=== PATIENT | female | born 1985 | race Hispanic/Latino ===

== ENCOUNTER → 2016-11-19 | Outpatient (CLI) | payer OTHER ==
[~2016-11-19] MED LIST: HYDR-3583 PO; IBP600T1 PO; PREN-37 PO
--- NOTE | 2016-11-19 13:58 | Diagnostic Imaging Report ---
INDICATION: survey. COMPARISON: 10/19/2016. DISCUSSION: Transabdominal sonographic evaluation of the gravid uterus was performed. Single live intrauterine at 20 weeks 4 days the sonographic measurements. Appropriate interval growth. EDC by today's ultrasound is 04/04/2017. presentation is cephalic. Normal amniotic fluid index. Grade 1 placenta is located anteriorly with no placenta previa. heart rate measures 134 beats per minute. The cervix measures 6.2 cm in length. Biparietal diameter measures 4.9 cm. Head circumference measures 17.8 cm. Abdominal circumference measures 15.2 cm. Femur length measures 3.4 cm. Good visualization of the kidneys, bladder, stomach, brain, four-chamber heart, three-vessel cord and insertion, and spine. Normal motion present. No abnormal adnexal mass or fluid. Estimated weight is 358 g. IMPRESSION: 1. Single live intrauterine at 20 weeks 4 days by sonographic measurements. 2. Normal anatomical survey. Dictated by: Dictated on workstation # [id number]
== END ==
LOC: RAD 11:35
PROVIDERS: ATTEND Family Medicine
DX: Z34.82 Encounter for supervision of other normal pregnancy, second trimester (principal); Z3A.20 20 weeks gestation of pregnancy
CPT/HCPCS: 76805

== ENCOUNTER → 2017-02-11 | Outpatient (CLI) | payer OTHER ==
--- NOTE | 2017-02-11 19:15 | Diagnostic Imaging Report ---
OB ultrasound. INDICATION: Evaluate growth. FINDINGS: heart rate is 140 beats per minute. The placenta is anterior with no placenta previa. position is cephalic. LINUS is 11.6 cm. The growth parameters are biparietal diameter at 32 weeks and 6 days, head circumference at 34 weeks and 2 days, abdominal circumference at 32 weeks and 4 days, and femur length at 33 weeks and 2 days. These are all averaged at 33 weeks and 6 days. This is compared to gestational age of 33 weeks and 1 day based on first ultrasound obtained on 10/19/2016. IMPRESSION: Appropriate interval growth. Dictated by: Dictated on workstation # [id number]
== END ==
LOC: RAD 15:31
PROVIDERS: ATTEND Family Medicine
DX: O36.63X0 Maternal care for excessive fetal growth, third trimester, not applicable or unspecified (principal)
CPT/HCPCS: 76816

== ENCOUNTER → 2017-03-21 | Outpatient (CLI) | payer OTHER ==
--- NOTE | 2017-03-21 11:19 | Diagnostic Imaging Report ---
OB ultrasound. INDICATION: Third trimester bleeding. FINDINGS: The heart rate is 134 beats per minutes. The placenta is anterior. There is no placenta previa. There is no retroplacental hemorrhage. The amniotic fluid index is 19 cm. The cervix is obscured by the head in the lower uterine segment as the fetus is in cephalic position. IMPRESSION: No evidence of retroplacental hemorrhage. Dictated by: Dictated on workstation # [id number]
== END ==
LOC: RAD 10:34
PROVIDERS: ATTEND Family Medicine
DX: O46.93 Antepartum hemorrhage, unspecified, third trimester (principal); Z3A.00 Weeks of gestation of pregnancy not specified
CPT/HCPCS: 76815

== ENCOUNTER 2017-03-27 20:02 | Inpatient (IN) | payer OTHER ==
[2017-03-27] VITALS (10 sets, daily range): BP systolic 113–134; BP diastolic 62–74
[~2017-03-27] VITALS: Ht 157.5 cm; Wt 73.1 kg
[2017-03-27] MEDS ORDERED: D5 LR IV SOLUTION 1,000 ML IV SCH (20:23)
[2017-03-27] MEDS ORDERED: MINERAL OIL CONCENTRATE 99.9% 15 ML UDC TOP PRN (20:30)
[2017-03-27 20:37] LABS: BASOPHILS % (AUTO) 0 % (0-10); EOSINOPHILS % (AUTO) 0 % (0-10); LYMPHOCYTES # (AUTO) 1.7 X 10^3 (1.0-4.0); LYMPHOCYTES % (AUTO) 15 % (12-44); MEAN CORPUSCULAR HEMOGLOBIN 33 PG (25-34); MEAN CORPUSCULAR HGB CONC 33 G/DL (32-36); MEAN CORPUSCULAR VOLUME 99 FL (80-99); MEAN PLATELET VOLUME 11.3 FL (7.4-10.4); MONOCYTES # (AUTO) 0.9 X 10^3 (0.0-1.0); MONOCYTES % (AUTO) 8 % (0-12); NEUTROPHILS # (AUTO) 8.6 X 10^3 (1.8-7.8); NEUTROPHILS % (AUTO) 77 % (42-75); PLATELET COUNT 140 10^3/uL (130-400); RED BLOOD COUNT 4.06 10^6/uL (4.35-5.85); RED CELL DISTRIBUTION WIDTH 14.4 % (10.0-14.5); WHITE BLOOD COUNT 11.3 10^3/uL (4.3-11.0)
[2017-03-27] MEDS ORDERED: OXYTOCIN/NORMAL SALINE 500 ML IV ONE (20:45)
[2017-03-27] MEDS ORDERED: LIDOCAINE/EPI 1%-1:200,000 (XYLOCAINE) 30 ML VIAL ONE (21:10)
--- NOTE | 2017-03-27 21:41 | OB Labor & Delivery Record ---
Vag Delivery Note Vag Delivery Note Date of Delivery: 03/27/17 Preoperative Diagnosis: David Garcia is a 32 /Para 3 / 2 ,Gestational Age 38w1d Postoperative Diagnosis: Same Surgeon: VIBHA GUTIERREZ Anesthesia: None Delivery Type: Spontaneous vaginal Findings: Viable male infant, apgars 8/9, weight 8 lb 3oz Lacerations: bilateral periurethral, right vaginal sulcus abrasion Intact placenta with 3 vessel cord. No nuchal cord, body cord or shoulder dystocia Estimated Blood Loss: 250 ml Complications: None Condition: Stable Description of Procedure: The patient is a 32 yo G3 now P3 with uncomplicated who presented just after SROM at home. She was admitted and informed consent was obtained. Her labor course was remarkable for rapid progression and meconium stained fluid. She progressed to complete dilatation and began to push. She was then set up for delivery. The 's head was delivered atraumatically in the J LUIS position. The shoulders and remainder of the infant's body were then delivered without difficulty. Upon delivery, the infant was vigorous and placed on maternal abdomen. Delayed cord clamping employed. An intact placenta with 3-vessel cord delivered via Ernie and there was found to be minimal bleeding.~ Vigorous fundal massage was performed and the fundus was found to be firm. IV oxytocin was given. Examination of the vagina and perineum revealed a left perineal laceration repaired in simple running fashion with 3-0 rapide. Right periurethral abrasion and vaginal sulcus abrasion were hemostatic and well opposed without repair. Following the repair, sponge, instrument and needle counts were correct. Mom and baby were both in stable condition in the labor suite. Vitals - Labs Labs Laboratory Tests 03/27/17 20:25: White Blood Count 11.3H, Red Blood Count 4.06L, Hemoglobin 13.4, Hematocrit 40, Mean Corpuscular Volume 99, Mean Corpuscular Hemoglobin 33, Mean Corpuscular Hemoglobin Concent 33, Red Cell Distribution Width 14.4, Platelet Count 140, Mean Platelet Volume 11.3H, Neutrophils (%) (Auto) 77H, Lymphocytes (%) (Auto) 15, Monocytes (%) (Auto) 8, Eosinophils (%) (Auto) 0, Basophils (%) (Auto) 0, Neutrophils # (Auto) 8.6H, Lymphocytes # (Auto) 1.7, Monocytes # (Auto) 0.9, Eosinophils # (Auto) 0.0, Basophils # (Auto) 0.0 VIBHA GUTIERREZ MD March 27, 2017 9:40 pm
--- NOTE | 2017-03-27 21:43 | History & Physical-OB ---
OB - Chief Complaint & HPI Date Date of Admission: Date of Admission: March 27, 2017 at 9:15 pm Chief Complaint/History OB-Reason for Admission/Chief: Onset of Labor Hx : 3 Hx Para: 2 Expected Date of Delivery: Apr 09, 2017 Gestational Age in Weeks: 38 Gestational Age in Days: 1 Other reason for admission: at 38 weeks presented with contraction since 6 am, with gush of fluid at about 6:30 pm. Allergies and Home Medications Allergies Coded Allergies: No Known Drug Allergies (Unverified , 07/23/13) Home Medications Vit/Iron Fumarate/FA 1 Each Tablet, 1 EACH PO DAILY, (Reported) OB - History Hx of Present Care: Yes Ultrasounds: Normal mid trimester US Obstetrical Complications: None Medical Complications: None Obstetrical History Hx : 3 Hx Para: 2 Hx # Term Pregnancies: 2 Hx # Pregnancies: 0 Number of Living Children: 2 Hx Termination: No Hx Multiple Gestation: No Hx Ectopic : No Hx Stillbirth: No Hx Complication: No Hx Induced Hypertens: No Hx Maternal Gestational Diabet: No Hx Hemorrhage: No Delivery History Hx Dystocia: No Hx Forceps Assisted Delivery: No Hx Vacuum Extraction Assisted: No Hx Placenta Abnormality: No Hx Distress: No Hx Large For Gestational Age I: No Hx Small for Gestational Age I: No Hx Section: No Hx Vaginal Delivery Post C-Sec: No Hx Blood Disorders: No Adverse Rxn to Tranfusion: No Patient Past Medical History None Social History/Family History HIV/AIDS: No Sexually Transmitted Disease: No Alcohol Use: Denies Use Recreational Drug Use: No Smoking Cessation: Never smoker Immunizations Tetanus Booster (TDap): Less than 5yrs Rubella: immune RPR/VDRL: Negative GBS Status: Negative HBsAG: Negative OB - Admission Exam Physical Exam HEENT: NCAT Cervical Dilatation: 10cm Effacement: 100% Station: +3 Membranes: Ruptured Amniotic Fluid: Thin Meconium Heart Rate: 140's Accelerations: Accelerations Present Decelerations: Variable Decelerations Crabber Variability: Average (6-25) Contractions on Admission: < 5 Minutes Apart Intensity: Firm Labs Laboratory Tests Test 03/27/17 20:25 Range/Units White Blood Count 11.3 H 4.3-11.0 10^3/uL Red Blood Count 4.06 L 4.35-5.85 10^6/uL Hemoglobin 13.4 11.5-16.0 G/DL Hematocrit 40 35-52 % Mean Corpuscular Volume 99 80-99 FL Mean Corpuscular Hemoglobin 33 25-34 PG Mean Corpuscular Hemoglobin Concent 33 32-36 G/DL Red Cell Distribution Width 14.4 10.0-14.5 % Platelet Count 140 130-400 10^3/uL Mean Platelet Volume 11.3 H 7.4-10.4 FL Neutrophils (%) (Auto) 77 H 42-75 % Lymphocytes (%) (Auto) 15 12-44 % Monocytes (%) (Auto) 8 0-12 % Eosinophils (%) (Auto) 0 0-10 % Basophils (%) (Auto) 0 0-10 % Neutrophils # (Auto) 8.6 H 1.8-7.8 X 10^3 Lymphocytes # (Auto) 1.7 1.0-4.0 X 10^3 Monocytes # (Auto) 0.9 0.0-1.0 X 10^3 Eosinophils # (Auto) 0.0 0.0-0.3 10^3/uL Basophils # (Auto) 0.0 0.0-0.1 10^3/uL OB - Assessment/Plan/Diagnosis Assessment Assessment: active labor, rupture of membranes Plan Plan: Expectant Management VIBHA GUTIERREZ MD March 27, 2017 9:43 pm
[2017-03-27] MEDS ORDERED: CATHETER FLUSH 10 ML SYR IV SCH (22:00)
[2017-03-28] VITALS: BP 115/68
[2017-03-28] MEDS ORDERED: OXYTOCIN/NORMAL SALINE 500 ML IV SCH (00:41)
[2017-03-28] MEDS ORDERED: WITCH HAZEL(TUCKS) 40 EA JAR TOP PRN (00:45)
[2017-03-28] MEDS ORDERED: BENZOCAINE/MENTHOL (DERMOPLAST) 56 ML CAN TP PRN (00:45)
[2017-03-28] MEDS: IBUPROFEN 600 MG (MOTRIN) TAB PO SCH ×4 (00:58→18:20)
[2017-03-28 00:59] VITALS: BP 113/66
[2017-03-28 04:45] VITALS: BP 103/60
[2017-03-28 06:06] LABS: BASOPHILS % (AUTO) 0 % (0-10); EOSINOPHILS % (AUTO) 0 % (0-10); LYMPHOCYTES # (AUTO) 1.8 X 10^3 (1.0-4.0); LYMPHOCYTES % (AUTO) 16 % (12-44); MEAN CORPUSCULAR HEMOGLOBIN 33 PG (25-34); MEAN CORPUSCULAR HGB CONC 33 G/DL (32-36); MEAN CORPUSCULAR VOLUME 100 FL (80-99); MEAN PLATELET VOLUME 10.9 FL (7.4-10.4); MONOCYTES # (AUTO) 0.8 X 10^3 (0.0-1.0); MONOCYTES % (AUTO) 7 % (0-12); NEUTROPHILS # (AUTO) 8.6 X 10^3 (1.8-7.8); NEUTROPHILS % (AUTO) 77 % (42-75); PLATELET COUNT 129 10^3/uL (130-400); RED BLOOD COUNT 3.47 10^6/uL (4.35-5.85); RED CELL DISTRIBUTION WIDTH 14.4 % (10.0-14.5); WHITE BLOOD COUNT 11.2 10^3/uL (4.3-11.0)
[2017-03-28 09:45] VITALS: BP 102/64
[2017-03-28] MEDS: PRENATAL VITAMIN 1 EA TAB PO SCH (10:43)
--- NOTE | 2017-03-28 11:17 | Progress Note (SOAP) ---
Subjective Subjective/Events-last exam Afebrile, no acute events. Denies dizziness or shortness of breath. States bleeding and pain are minimal. Is bottle-feeding. Date seen by provider: March 28, 2017 Time seen by provider: 09:20 Objective Exam Last Set of Vital Signs Vital Signs Date Time Temp Pulse Resp B/P (MAP) Pulse Ox O2 Delivery O2 Flow Rate FiO2 03/28/17 04:45 97.0 83 18 103/60 03/28/17 00:00 98 Capillary Refill : I&O Bad tableGeneral: Alert, No Acute Distress Lungs: Clear to Auscultation, Normal Air Movement Heart: Regular Rate, No Murmurs Abdomen: Other (fundus firm at umbilicus) Extremities: No Edema Neuro: Normal Speech Psych/Mental Status: Mental Status NL Results/Procedures Lab Laboratory Tests 03/27/17 20:25: White Blood Count 11.3H, Red Blood Count 4.06L, Hemoglobin 13.4, Hematocrit 40, Mean Corpuscular Volume 99, Mean Corpuscular Hemoglobin 33, Mean Corpuscular Hemoglobin Concent 33, Red Cell Distribution Width 14.4, Platelet Count 140, Mean Platelet Volume 11.3H, Neutrophils (%) (Auto) 77H, Lymphocytes (%) (Auto) 15, Monocytes (%) (Auto) 8, Eosinophils (%) (Auto) 0, Basophils (%) (Auto) 0, Neutrophils # (Auto) 8.6H, Lymphocytes # (Auto) 1.7, Monocytes # (Auto) 0.9, Eosinophils # (Auto) 0.0, Basophils # (Auto) 0.0 03/28/17 05:52: White Blood Count 11.2H, Red Blood Count 3.47L, Hemoglobin 11.4L, Hematocrit 35 , Mean Corpuscular Volume 100H, Mean Corpuscular Hemoglobin 33, Mean Corpuscular Hemoglobin Concent 33, Red Cell Distribution Width 14.4, Platelet Count 129L, Mean Platelet Volume 10.9H, Neutrophils (%) (Auto) 77H, Lymphocytes (%) (Auto) 16, Monocytes (%) (Auto) 7, Eosinophils (%) (Auto) 0, Basophils (%) ( Auto) 0, Neutrophils # (Auto) 8.6H, Lymphocytes # (Auto) 1.8, Monocytes # (Auto ) 0.8, Eosinophils # (Auto) 0.0, Basophils # (Auto) 0.0 Assessment/Plan Assessment/Plan Admission Dx Active labor at 38 weeks gestation O+ blood type RI GBS neg Plan s/p uncomplicated spontaneous vaginal delivery- continue routine care Asymptomatic anemia Diagnosis/Problems: Clinical Quality Measures DVT/VTE Risk/Contraindication: Risk Factor Score Per Nursin RFS Level Per Nursing on Admit: 1=Low/No VTE PPX VIBHA GUTIERREZ MD March 28, 2017 11:17
[2017-03-28 13:30] VITALS: BP 93/54
[2017-03-28 17:30] VITALS: BP 102/63
[2017-03-29] MEDS: IBUPROFEN 600 MG (MOTRIN) TAB PO SCH ×3 (00:06→11:57)
[2017-03-29 00:16] VITALS: BP 110/67
[2017-03-29] MEDS: CATHETER FLUSH 10 ML SYR IV SCH ×2 (00:17→06:09)
[2017-03-29 06:04] VITALS: BP 89/56
[2017-03-29] MEDS ORDERED: IBUP-1773 PO (07:55)
--- NOTE | 2017-03-29 07:57 | Discharge Instructions ---
Discharge Inst-Women's Serv Depart Medications New, Converted or Re-Newed RX: Transmitted to Pharmacy New Medications: Ibuprofen (Ibuprofen) 600 Mg Tablet 600 MG PO Q6H PRN for PAIN-MILD TO MODERATE, #60 TAB 0 Refills Continued Medications: Vit/Iron Fumarate/FA ( Tablet) 1 Each Tablet 1 EACH PO DAILY, TAB Follow Up/Instructions Goal/Follow Up: Follow up with Dr. Ko in 6 weeks for visit. Activity Activity: Activity as Tolerated (avoid strenuous activity x 6 weeks) Driving Instructions: You May Drive Diet Discharge Diet: Regular Diet Symptoms to Report to : Swelling Increased, Pain/Pressure in Chest, Heart Beat Irreg/Pounding, Vaginal Bleeding Increase, Cramps in Feet or Legs, Vaginal Discharge Foul, Nausea/Vomiting, Shortness of Breath For Any Problems or Questions: Contact Your Physician Copies To 1: VIBHA KO MD, BETHANY N MD March 29, 2017 7:57 am
[2017-03-29 08:30] VITALS: BP 105/73
[2017-03-29] MEDS: PRENATAL VITAMIN 1 EA TAB PO SCH (09:03)
--- NOTE | 2017-03-29 12:00 | Discharge Summary ---
Diagnosis/Chief Complaint Date of Admission March 27, 2017 at 9:15 pm Date of Discharge March 29, 2017 Admission Diagnosis Admission Diagnosis Active labor at 38 weeks gestation O+ blood type RI GBS neg Discharge Diagnosis s/p spontaneous vaginal delivery asymptomatic anemia, mild O+ blood type RI GBS neg Chief Complaint/HPI Chief Complaint/HPI 32 yo G3 now P3 presented to L&D after spontaneous rupture of membranes at home at 38 weeks gestation. Discharge Summary-Simple/Stand Procedures Spontaneous vaginal delivery Discharge Physical Examination Allergies: Coded Allergies: No Known Drug Allergies (Unverified , 07/23/13) Vitals & I&Os Vital Sign - Last 12Hours Date Time Temp Pulse Resp B/P (MAP) Pulse Ox O2 Delivery O2 Flow Rate FiO2 03/29/17 08:30 97.9 96 18 105/73 99 General Appearance: Alert, No Acute Distress Respiratory: Clear to Auscultation, Normal Air Movement Cardiovascular: Regular Rate, No Murmurs Abdominal: Normal Bowel Sounds, Other (fundus firm below umbilicus) Hospital Course Precipitous labor and delivery, uncomplicated. course uncomplicated, ambulated, tolerated diet and urinated without difficulty. Asymptomatic mild anemia, not requiring iron replacement. No shortness of breath or dizziness. Labs Laboratory Tests Test 03/27/17 20:25 03/28/17 05:52 Range/Units White Blood Count 11.3 H 11.2 H 4.3-11.0 10^3/uL Red Blood Count 4.06 L 3.47 L 4.35-5.85 10^6/uL Hemoglobin 13.4 11.4 L 11.5-16.0 G/DL Hematocrit 40 35 35-52 % Mean Corpuscular Volume 99 100 H 80-99 FL Mean Corpuscular Hemoglobin 33 33 25-34 PG Mean Corpuscular Hemoglobin Concent 33 33 32-36 G/DL Red Cell Distribution Width 14.4 14.4 10.0-14.5 % Platelet Count 140 129 L 130-400 10^3/uL Mean Platelet Volume 11.3 H 10.9 H 7.4-10.4 FL Neutrophils (%) (Auto) 77 H 77 H 42-75 % Lymphocytes (%) (Auto) 15 16 12-44 % Monocytes (%) (Auto) 8 7 0-12 % Eosinophils (%) (Auto) 0 0 0-10 % Basophils (%) (Auto) 0 0 0-10 % Neutrophils # (Auto) 8.6 H 8.6 H 1.8-7.8 X 10^3 Lymphocytes # (Auto) 1.7 1.8 1.0-4.0 X 10^3 Monocytes # (Auto) 0.9 0.8 0.0-1.0 X 10^3 Eosinophils # (Auto) 0.0 0.0 0.0-0.3 10^3/uL Basophils # (Auto) 0.0 0.0 0.0-0.1 10^3/uL Discharge Instructions to patient/family Please see electonic discharge instructions given to patient. Discharge Medications Reviewed and agree with Discharge Medication list on patient's Discharge Instruction sheet Clinical Quality Measures DVT/VTE Risk/Contraindication: Risk Factor Score Per Nursin RFS Level Per Nursing on Admit: 1=Low/No VTE PPX Copy Copies To 1: VIBHA GTUIERREZ MD, BETHANY N MD March 29, 2017 11:59 am
[2017-03-29 12:45] VITALS: BP 105/73
== END 2017-03-29 12:45 | disposition home or self-care (01) | DRG 775 ==
LOC: WSo 20:02 → LDRP 20:04 → WSo 20:04 → LDRP 21:15 → ENPENDDIS 03-29 10:00
PROVIDERS: ADMIT Family Medicine; ATTEND Family Medicine
PROC: 10E0XZZ Delivery of Products of Conception, External Approach (ICD-10-PCS; principal; 2017-03-27)
PROC: 0UQMXZZ Repair Vulva, External Approach (ICD-10-PCS; 2017-03-27)
DX: O62.3 Precipitate labor (principal); O71.82 Other specified trauma to perineum and vulva; Z37.0 Single live birth; Z3A.38 38 weeks gestation of pregnancy
CPT/HCPCS: 36415; 85025; 86850; 86900; 86901; 99212

== ENCOUNTER 2021-08-08 03:49 | Inpatient (IN) | payer SELFPAY ==
[2021-08-08] VITALS (16 sets, daily range): BP systolic 99–128; BP diastolic 54–79
[~2021-08-08] VITALS: Ht 167.7 cm; Wt 73.8 kg
[~2021-08-08 03:49] MED LIST changes: +IBUP-1773 PO
[2021-08-08 04:07] LABS: BILIRUBIN,URINE NEGATIVE (NEGATIVE); CLARITY,URINE CLEAR; COLOR,URINE YELLOW; GLUCOSE, URINE (UA) NEGATIVE (NEGATIVE); KETONES,URINE NEGATIVE (NEGATIVE); LEUKOCYTE ESTERASE ,URINE NEGATIVE (NEGATIVE); NITRITE,URINE NEGATIVE (NEGATIVE); PROTEIN,URINE NEGATIVE (NEGATIVE)
[2021-08-08 04:14] LABS: BACTERIA,URINE TRACE /HPF
[2021-08-08] MEDS ORDERED: D5 LR IV SOLUTION 1,000 ML IV ONE ×2 (05:22→15:51)
[2021-08-08] MEDS ORDERED: D5 LR IV SOLUTION 1,000 ML IV SCH (05:45)
[2021-08-08] MEDS ORDERED: MINERAL OIL CONCENTRATE 99.9% 15 ML UDC TOP PRN (05:45)
[2021-08-08 05:49] LABS: HEMATOCRIT 40 % (35-52); HEMOGLOBIN 13.2 g/dL (11.5-16.0); MEAN CORPUSCULAR HEMOGLOBIN 34 pg (25-34); MEAN CORPUSCULAR HGB CONC 33 g/dL (32-36); MEAN CORPUSCULAR VOLUME 102 fL (80-99)
[2021-08-08 05:50] LABS: BASOPHILS % (AUTO) 0 % (0-10); EOSINOPHILS # (AUTO) 0.1 10^3/uL (0.0-0.3); EOSINOPHILS % (AUTO) 1 % (0-10); LYMPHOCYTES % (AUTO) 26 % (12-44); MEAN PLATELET VOLUME 11.2 fL (9.0-12.2); MONOCYTES # (AUTO) 0.5 10^3/uL (0.0-1.0); MONOCYTES % (AUTO) 7 % (0-12); NEUTROPHILS % (AUTO) 66 % (42-75); PLATELET COUNT 151 10^3/uL (130-400); WHITE BLOOD COUNT 7.7 10^3/uL (4.3-11.0)
[2021-08-08] MEDS ORDERED: CATHETER FLUSH 10 ML SYR IV SCH ×2 (06:00→14:00)
--- NOTE | 2021-08-08 06:07 | History & Physical-OB/GYN ---
FRANK HILARIO 08/08/21 0607: OB - Chief Complaint & HPI Date/Time Date of Admission: Date of Admission: Aug 08, 2021 at 05:46 Date seen by a Provider: Aug 08, 2021 Time Seen by a Provider: 06:02 Chief Complaint/History OB-Reason for Admission/Chief: Onset of Labor Hx : 4 Hx Para: 3 Expected Date of Delivery: Aug 03, 2021 Gestational Age in Weeks: 40 Gestational Age in Days: 5 Admission Nurse Assessment Rev: Yes Allergies and Home Medications Allergies Coded Allergies: No Known Drug Allergies (Unverified , 07/23/13) Patient Home Medication List Home Medication List Reviewed: Yes Ibuprofen (Ibuprofen) 600 Mg Tablet, 600 MG PO Q6H PRN for PAIN-MILD TO MODERATE Prescribed by: SANJUANA KO on 03/29/17 0755 Vit/Iron Fumarate/FA ( Tablet) 1 Each Tablet, 1 EACH PO DAILY, (Reported) Entered as Reported by: ANA BENJAMIN on 03/14/17 0932 OB - History Hx of Present Care: Yes Obstetrical History Hx : 4 Hx Para: 3 Hx Termination: No Hx Multiple Gestation: No Hx Stillbirth: No Hx Complication: No Hx Induced Hypertens: No Hx Maternal Gestational Diabet: No Delivery History Hx Dystocia: No Hx Large For Gestational Age I: No Hx Small for Gestational Age I: No Hx Section: No Hx Vaginal Delivery Post C-Sec: No Hx Blood Disorders: No Adverse Rxn to Tranfusion: No Patient Past Medical History None Social History/Family History Recreational Drug Use: No 2nd Hand Smoke Exposure: No Immunizations Tetanus Booster (TDap): Less than 5yrs OB - Admission Exam Physical Exam Vitals: Vital Signs 08/08/21 04:44 Temp 36.9 Pulse 82 Resp 18 Pulse Ox 100 O2 Delivery Room Air Labs Laboratory Tests Test 08/08/21 03:55 08/08/21 05:30 Range/Units Urine Color YELLOW Urine Clarity CLEAR Urine pH 6.0 5-9 Urine Specific [place] 1.010 L 1.016-1.022 Urine Protein NEGATIVE NEGATIVE Urine Glucose (UA) NEGATIVE NEGATIVE Urine Ketones NEGATIVE NEGATIVE Urine Nitrite NEGATIVE NEGATIVE Urine Bilirubin NEGATIVE NEGATIVE Urine Urobilinogen 0.2 < = 1.0 MG/DL Urine Leukocyte Esterase NEGATIVE NEGATIVE Urine RBC (Auto) NEGATIVE NEGATIVE Urine RBC NONE /HPF Urine WBC NONE /HPF Urine Squamous Epithelial Cells 10-25 H /HPF Urine Crystals NONE /LPF Urine Bacteria TRACE /HPF Urine Casts NONE /LPF Urine Mucus SMALL H /LPF Urine Culture Indicated NO White Blood Count 7.7 4.3-11.0 10^3/uL Red Blood Count 3.89 3.80-5.11 10^6/uL Hemoglobin 13.2 11.5-16.0 g/dL Hematocrit 40 35-52 % Mean Corpuscular Volume 102 H 80-99 fL Mean Corpuscular Hemoglobin 34 25-34 pg Mean Corpuscular Hemoglobin Concent 33 32-36 g/dL Red Cell Distribution Width 13.2 10.0-14.5 % Platelet Count 151 130-400 10^3/uL Mean Platelet Volume 11.2 9.0-12.2 fL Immature Granulocyte % (Auto) 0 % Neutrophils (%) (Auto) 66 42-75 % Lymphocytes (%) (Auto) 26 12-44 % Monocytes (%) (Auto) 7 0-12 % Eosinophils (%) (Auto) 1 0-10 % Basophils (%) (Auto) 0 0-10 % Neutrophils # (Auto) 5.0 1.8-7.8 10^3/uL Lymphocytes # (Auto) 2.0 1.0-4.0 10^3/uL Monocytes # (Auto) 0.5 0.0-1.0 10^3/uL Eosinophils # (Auto) 0.1 0.0-0.3 10^3/uL Basophils # (Auto) 0.0 0.0-0.1 10^3/uL Immature Granulocyte # (Auto) 0.0 0.0-0.1 10^3/uL Percent Immature Platelet Fraction 7.7 H 0.0-7.6 % OB - Assessment/Plan/Diagnosis Assessment Assessment: active labor Admission Dx Active labor Admission Status: Inpatient Order (span 2 midnights) Reason for Inpatient Admission: Active labor Plan Plan: Expectant Management SANJUANA KO MD 08/08/21 0615: Allergies and Home Medications Allergies Coded Allergies: No Known Drug Allergies (Unverified , 07/23/13) Patient Home Medication List Ibuprofen (Ibuprofen) 600 Mg Tablet, 600 MG PO Q6H PRN for PAIN-MILD TO MODERATE Prescribed by: SANJUANA KO on 03/29/17 0755 Vit/Iron Fumarate/FA ( Tablet) 1 Each Tablet, 1 EACH PO DAILY, (Reported) Entered as Reported by: ANA BENJAMIN on 03/14/17 0932 OB - Admission Exam Physical Exam HEENT: NCAT Cervical Dilatation: 6cm Effacement: 100% Membranes: Ruptured Heart Rate: 130's Accelerations: Accelerations Present Contractions on Admission: < 5 Minutes Apart OB - Assessment/Plan/Diagnosis Plan Problems: (1) Active labor at term (2) 40 weeks gestation of Supervisory-Addendum Brief Verification & Attestation Participated in pt care: history, MDM, physical Personally performed: exam, history, MDM Care discussed with: Medical Student Procedures: n/a Verification and Attestation of Medical Student E/M Service A medical student performed and documented this service in my presence. I reviewed and verified all information documented by the medical student and made modifications to such information, when appropriate. I personally performed the physical exam and medical decision making. Sanjuana Ko, Aug 08, 2021,06:15 FRANK HILARIO Aug 08, 2021 06:07 SANJUANA KO MD Aug 08, 2021 06:15
[2021-08-08] MEDS ORDERED: OXYTOCIN PRE-MIX DRIP 500 ML IV ONE ×2 (07:08→08:21)
[2021-08-08] MEDS ORDERED: LIDOCAINE/EPI 2% 1:200,00 (XYLOCAINE) 20 ML VIAL ONE (07:24)
--- NOTE | 2021-08-08 08:07 | OB Labor & Delivery Record ---
Vag Delivery Note Vag Delivery Note Date of Delivery: 08/08/21 Preoperative Diagnosis: David Garcia is a (36 /Para 4 / 3,Gestational Age (wks)40with 5 days Postoperative Diagnosis: Same Surgeon: VIBHA GUTIERREZ Exhibition Organiser: Linda Tariq, OMS3 Anesthesia: None Delivery Type: Findings: Viable female , apgars 8/9, weight 7#13 Lacerations: right vaginal abrasion Estimated Blood Loss: 250 ml Complications: None Condition: Stable Description of Procedure: The patient is a 36 year old female who presented in active labor. She was admitted and informed consent was obtained. Her labor course was unremarkable. She progressed to complete dilatation and began to push. She was then set up for delivery. The 's head was delivered atraumatically in the OA position. The shoulders and remainder of the 's body were then delivered without difficulty. Upon delivery, the was placed on maternal abdomen. The was vigorous and after a delay the cord was doubly clamped and cut and the was handed off to the pediatric staff. An intact placenta with 3-vessel cord delivered via Ernie and there was found to be minimal bleeding.~ Vigorous fundal massage was performed and the fundus was found to be firm. IV oxytocin was given. Examination of the vagina and perineum revealed a right vaginal abrasion that was hemostatic, not requiring repair. Following the delivery, sponge, instrument and needle counts were correct. Mom and baby were both in stable condition in the labor suite. Vitals - Labs Vital Signs - I&O Vital Signs Date Time Temp Pulse Resp B/P (MAP) Pulse Ox O2 Delivery O2 Flow Rate FiO2 08/08/21 07:10 36.7 85 18 107/59 (75) 98 Room Air 08/08/21 06:10 82 18 121/69 (86) Room Air 08/08/21 05:20 82 18 128/79 (95) Room Air 08/08/21 04:44 36.9 82 18 100 Room Air 08/08/21 04:30 36.9 82 18 100 Room Air 08/08/21 04:00 36.9 82 18 119/75 (90) 100 Room Air Labs Laboratory Tests 08/08/21 03:55: Urine Color YELLOW, Urine Clarity CLEAR, Urine pH 6.0, Urine Specific [place] 1.010L, Urine Protein NEGATIVE, Urine Glucose (UA) NEGATIVE, Urine Ketones NEGATIVE, Urine Nitrite NEGATIVE, Urine Bilirubin NEGATIVE, Urine Urobilinogen 0.2, Urine Leukocyte Esterase NEGATIVE, Urine RBC (Auto) NEGATIVE, Urine RBC NONE, Urine WBC NONE, Urine Squamous Epithelial Cells 10-25H, Urine Crystals NONE, Urine Bacteria TRACE, Urine Casts NONE, Urine Mucus SMALLH, Urine Culture Indicated NO 08/08/21 05:30: White Blood Count 7.7, Red Blood Count 3.89, Hemoglobin 13.2, Hematocrit 40, Mean Corpuscular Volume 102H, Mean Corpuscular Hemoglobin 34, Mean Corpuscular Hemoglobin Concent 33, Red Cell Distribution Width 13.2, Platelet Count 151, Mean Platelet Volume 11.2, Immature Granulocyte % (Auto) 0, Neutrophils (%) (Auto) 66, Lymphocytes (%) (Auto) 26, Monocytes (%) (Auto) 7, Eosinophils (%) (Auto) 1, Basophils (%) (Auto) 0, Neutrophils # (Auto) 5.0, Lymphocytes # (Auto) 2.0, Monocytes # (Auto) 0.5, Eosinophils # (Auto) 0.1, Basophils # (Auto) 0.0, Immature Granulocyte # (Auto) 0.0, Percent Immature Platelet Fraction 7.7H VIBHA GUTIERREZ MD Aug 08, 2021 08:07
[2021-08-08] MEDS ORDERED: OXYTOCIN PRE-MIX DRIP 500 ML IV SCH (09:15)
[2021-08-08] MEDS ORDERED: BENZOCAINE/MENTHOL (DERMOPLAST) 56 ML CAN TP PRN (09:15)
[2021-08-08] MEDS ORDERED: WITCH HAZEL(TUCKS) 40 EA JAR TOP PRN (09:15)
[2021-08-08] MEDS ORDERED: IBUPROFEN 600 MG (MOTRIN) TAB PO ONE (09:55)
[2021-08-08] MEDS: DOCUSATE SODIUM 100 MG (COLACE) CAP PO SCH ×2 (09:57→23:10)
[2021-08-08] MEDS: IBUPROFEN 600 MG (MOTRIN) TAB PO SCH ×3 (09:57→23:10)
[2021-08-09 02:15] VITALS: BP 97/54
[2021-08-09 05:40] VITALS: BP 99/56
[2021-08-09] MEDS: IBUPROFEN 600 MG (MOTRIN) TAB PO SCH (05:40)
[2021-08-09 06:20] LABS: MONOCYTES % (AUTO) 6 % (0-12)
[2021-08-09 06:22] LABS: BASOPHILS % (AUTO) 1 % (0-10); EOSINOPHILS # (AUTO) 0.1 10^3/uL (0.0-0.3); EOSINOPHILS % (AUTO) 1 % (0-10); HEMATOCRIT 36 % (35-52); LYMPHOCYTES # (AUTO) 2.2 10^3/uL (1.0-4.0); LYMPHOCYTES % (AUTO) 25 % (12-44); MEAN CORPUSCULAR HEMOGLOBIN 34 pg (25-34); MEAN CORPUSCULAR HGB CONC 33 g/dL (32-36); MEAN CORPUSCULAR VOLUME 103 fL (80-99); MEAN PLATELET VOLUME 11.1 fL (9.0-12.2); MONOCYTES # (AUTO) 0.5 10^3/uL (0.0-1.0); NEUTROPHILS # (AUTO) 5.9 10^3/uL (1.8-7.8); NEUTROPHILS % (AUTO) 68 % (42-75); PLATELET COUNT 141 10^3/uL (130-400); WHITE BLOOD COUNT 8.7 10^3/uL (4.3-11.0)
--- NOTE | 2021-08-09 07:21 | Discharge Summary ---
Diagnosis/Chief Complaint Date of Admission Aug 08, 2021 at 05:46 Date of Discharge August 09, 2021 Admission Diagnosis Admission Diagnosis 1. Intrauterine at term 40 weeks gestation Discharge Diagnosis 1. Intrauterine at term 40 weeks gestation Chief Complaint/HPI Chief Complaint/HPI 36-year-old [id number] who initially presented yesterday morning in active labor. She was noted to be at 40 weeks gestation. Her care was obtained through [facility] with Dr. Ko and essentially unremarkable. Discharge Summary-OBS Procedures 1. Spontaneous vaginal delivery Discharge Physical Examination Allergies: Coded Allergies: No Known Drug Allergies (Unverified , 07/23/13) Vitals & I&Os Vital Sign - Last 12Hours Date Time Temp Pulse Resp B/P (MAP) Pulse Ox O2 Delivery O2 Flow Rate FiO2 08/09/21 05:40 36.6 70 18 99/56 (70) 98 Room Air General Appearance: Alert, No Acute Distress Respiratory: Clear to Auscultation Cardiovascular: Regular Rate Abdominal: Soft (with uterus firm) Hospital Course following admission patient ultimately delivered a term viable female in the watch dial maker of August 08, 2021. See labor and delivery note by Dr. Ko for full details following delivery she underwent routine care orders. She had no complications during the remainder of hospital stay. She was noted to have laboratory drawn in the morning of August 09 with hemoglobin of 12.0 and this was compared to admission of 13.2. She was tolerating regular diet. She was ambulatory and did not have any chest pain or leg pain. She was felt ready for dismissal during the morning of August 09, 2021. She will follow-up with Dr. Ko in 6 weeks. Labs Laboratory Tests 08/09/21 06:05: White Blood Count 8.7, Red Blood Count 3.51L, Hemoglobin 12.0, Hematocrit 36, Mean Corpuscular Volume 103H, Mean Corpuscular Hemoglobin 34, Mean Corpuscular Hemoglobin Concent 33, Red Cell Distribution Width 13.5, Platelet Count 141, Mean Platelet Volume 11.1, Immature Granulocyte % (Auto) 1, Neutrophils (%) (Auto) 68, Lymphocytes (%) (Auto) 25, Monocytes (%) (Auto) 6, Eosinophils (%) (Auto) 1, Basophils (%) (Auto) 1, Neutrophils # (Auto) 5.9, Lymphocytes # (Auto) 2.2, Monocytes # (Auto) 0.5, Eosinophils # (Auto) 0.1, Basophils # (Auto) 0.0, Immature Granulocyte # (Auto) 0.0, Percent Immature Platelet Fraction 6.3 Discharge Instructions to patient/family Please see electronic discharge instructions given to patient. Discharge Medications Reviewed and agree with Discharge Medication list on patient's Discharge Instruction sheet ALYCE SANDERS MD Aug 09, 2021 07:21
--- NOTE | 2021-08-09 07:23 | Discharge Inst-Women's Service ---
Discharge Inst-Women's Serv Depart Medication/Instructions Instructions May take ibuprofen 2 or 3 tablets [id number] every 6 hours if needed for cramps. Also continue with vitamin 1 daily for the next month. Problems Reviewed?: Yes Consults/Follow Up Additional Follow Up: Yes (with Dr. Ko in 6 weeks) Activity Activity: Activity as Tolerated Nothing Inside Vagina: No [place] (for 6 weeks) Diet Discharge Diet: Regular Diet Return to [facility] For: as below Symptoms to Report to : Bleeding Excessive, Fever Over 101 Degrees F, Vaginal Discharge Foul For Any Problems or Questions: Contact Your Physician ALYCE SANDERS MD Aug 09, 2021 07:23
[2021-08-09 08:29] VITALS: BP 102/62
== END 2021-08-09 11:05 | disposition home or self-care (01) | DRG 807 ==
LOC: WSo 03:49 → LDRP 03:52 → WSo 05:45 → LDRP 05:46
PROVIDERS: ADMIT Family Medicine; ATTEND Family Medicine
PROC: 10E0XZZ Delivery of Products of Conception, External Approach (ICD-10-PCS; principal; 2021-08-08)
DX: O71.89 Other specified obstetric trauma (principal); Z37.0 Single live birth; Z3A.40 40 weeks gestation of pregnancy
CPT/HCPCS: 36415; 81000; 85025; 86850; 86900; 86901; 99212